=== PATIENT | female | born 1955 | race Caucasian/White ===

== ENCOUNTER 2022-09-04 16:14 | Emergency (ER) | payer MEDICARE, OTHER ==
[~2022-09-04] VITALS: Ht 172.7 cm; Wt 75.0 kg
[2022-09-04 16:24] VITALS: BP 153/81
[2022-09-04] MEDS ORDERED: OXYC-145 PO (16:49)
== END 2022-09-04 17:24 | disposition home or self-care (01) ==
LOC: ER 16:17
DX: S52.91XG Unspecified fracture of right forearm, subsequent encounter for closed fracture with delayed healing (principal); X58.XXXD Exposure to other specified factors, subsequent encounter
CPT/HCPCS: 99283